=== PATIENT | female | born 1970 | race Caucasian/White ===

== ENCOUNTER 2017-04-09 11:43 | Emergency (ER) | payer OTHER ==
[~2017-04-09] VITALS: Ht 152.4 cm; Wt 43.3 kg
[~2017-04-09 11:43] MED LIST: ACET-8386 PO
[2017-04-09 12:19] VITALS: BP 92/72
--- NOTE | 2017-04-09 12:26 | NUR ---
PATIENT AMBULATED TO BED 11
--- NOTE | 2017-04-09 12:28 | NUR ---
46/F C/O BILATERAL FLANK PAIN 10/10, BURNING UPON URINATION X1D. DENIES N/V/D; SKIN IS PINK/WARM/DRY; AAOX4 WITH EVEN AND STEADY GAIT; LUNGS CLEAR BL; HR EVEN AND REGULAR; PT DENIES ANY FEVER, CP, SOB, OR COUGH AT THIS TIME; PATIENT STATES PAIN OF 10/10 AT THIS TIME; VSS; PATIENT POSITIONED FOR COMFORT; HOB ELEVATED; BEDRAILS UP X2; BED DOWN. ER MD MADE AWARE OF PT STATUS.
[2017-04-09] MEDS ORDERED: KETOROLAC 30 MG/ML VIAL IM ONE (12:45)
[2017-04-09 12:48] LABS: APPEARANCE,URINE HAZY (CLEAR); BILIRUBIN,URINE NEGATIVE (NEGATIVE); BLOOD, URINE TRACE-I (NEGATIVE); COLOR,URINE YELLOW (YELLOW); LEUKOCYTE ESTERASE ,URINE NEGATIVE (NEGATIVE); NITRITE, URINE NEGATIVE (NEGATIVE); UGLUCOSE NEGATIVE (NEGATIVE)
[2017-04-09 12:56] LABS: RBC,URINE 0-5 (RARE) /HPF (0-5); WBC,URINE 0-5 (RARE) /HPF (0-5)
[2017-04-09 14:41] VITALS: BP 121/74
--- NOTE | 2017-04-09 14:41 | NUR ---
Patient discharged with v/s stable. Written and verbal after care instructions given and explained. Patient alert, oriented and verbalized understanding of instructions. Ambulatory with steady gait. All questions addressed prior to discharge. ID band removed. Patient advised to follow up with PMD. Rx of MIRALAX AND NAPROXEN given. Patient educated on indication of medication including possible reaction and side effects. Opportunity to ask questions provided and answered.
== END 2017-04-09 14:41 | disposition home or self-care (01) ==
LOC: MED 11:43
DX: K59.00 Constipation, unspecified (principal); Z79.899 Other long term (current) drug therapy; Z88.0 Allergy status to penicillin; Z88.8 Allergy status to other drugs, medicaments and biological substances
CPT/HCPCS: 74176; 81001; 81025; 96372; 99285; J1885

== ENCOUNTER 2019-08-27 12:36 | Emergency (ER) | payer OTHER ==
[~2019-08-27] VITALS: Ht 152.4 cm; Wt 44.9 kg
[2019-08-27 12:43] VITALS: BP 105/61
--- NOTE | 2019-08-27 12:54 | NUR ---
Patient ambulated to bed 4. RN evaluating patient at bedside.
--- NOTE | 2019-08-27 13:05 | NUR ---
RECEIVED A 48/F FROM TRIAGE FOR C/O RT UPPER BACK, SHOULDER, AND CHEST PAIN. PT REPORTS SHE HAD A SYNCOPAL EPISODE 2 WEEKS AGO AND ROOMATE PERFORMED CPR UNTIL EMS ARRIVAL. PT WAS EVALUATED AT [facility] FOR FOLLOW UP CARE. NO DEFORMITY NOTED. FULL ROM. IN BED FOR MSE.
[2019-08-27] MEDS ORDERED: KETOROLAC 30 MG/ML VIAL IM ONE (13:20)
[2019-08-27 13:27] VITALS: BP 105/61
--- NOTE | 2019-08-27 14:18 | NUR ---
Patient discharged with v/s stable. Written and verbal after care instructions given and explained. Patient alert, oriented and verbalized understanding of instructions. Ambulatory with steady gait. All questions addressed prior to discharge. ID band removed. Patient advised to follow up with PMD. Rx of flexeril given. Patient educated on indication of medication including possible reaction and side effects. Opportunity to ask questions provided and answered.
== END 2019-08-27 14:18 | disposition home or self-care (01) ==
LOC: MED 12:36
DX: S29.011A Strain of muscle and tendon of front wall of thorax, initial encounter (principal); S46.811A Strain of other muscles, fascia and tendons at shoulder and upper arm level, right arm, initial encounter; Z79.899 Other long term (current) drug therapy; Z88.0 Allergy status to penicillin; Z88.8 Allergy status to other drugs, medicaments and biological substances; W19.XXXA Unspecified fall, initial encounter; Y93.89 Activity, other specified; Y92.89 Other specified places as the place of occurrence of the external cause; Y99.8 Other external cause status
CPT/HCPCS: 71046; 73030; 96372; 99284; J1885